=== PATIENT | male | born 1955 | race Caucasian/White ===

== ENCOUNTER 2022-10-01 12:41 | Outpatient (OUT) | payer MEDICARE, OTHER, SELFPAY ==
--- NOTE | 2022-10-01 13:00 | CA_ITS ---
Patient: MARGARET BARKLEY Exam Date: 10/01/2022 : 1955 Gender:M Ordering : DR EVERARDO JAIN M.D. Admission #: [id number] Family : Order #: [id number] CLICK HERE TO VIEW EXAM ECHOCARDIOGRAM REPORT PROCEDURE: CA ECHO DOPPLER COMPLETE INDICATIONS: Aortic valve disorder, abnormal ECG, hypertension, PTCA COMPARISON: None. DESCRIPTION: COMPLETE ECHOCARDIOGRAM Real-time transthoracic echocardiography with 2D, M-mode, spectral and color flow Doppler performed. QUALITY: Technical quality was good. LEFT VENTRICLE: Normal chamber size. Proximal septal hypertrophy (sigmoid septum). LV EF: Normal left ventricular ejection fraction, (>55%). DIASTOLIC: Normal diastolic function. ATRIAL SEPTUM: Visually appears intact. LEFT ATRIUM: Normal chamber size. RIGHT ATRIUM: Normal chamber size. RIGHT VENTRICLE: Normal chamber size. Normal right ventricular systolic function. TRICUSPID VALVE: Normal mobility and thickness. No stenosis with no regurgitation. MITRAL VALVE: Normal mobility and thickness. No evidence of mitral valve stenosis. There is no mitral annular calcification. No mitral regurgitation. AORTIC VALVE: Normal trileaflet appearance. No visible sclerosis. Normal leaflet mobility. No evidence of aortic valve stenosis. Mild aortic regurgitation. AORTIC ROOT: Normal diameter and appearance. PULMONIC VALVE: Normal thickness and mobility. No stenosis. Trivial regurgitation. PERICARDIUM: No evidence of pericardial effusion. IVC: Collapses with inspirations. CONCLUSION: Global left ventricular systolic function is normal; visually estimated ejection fraction is 55 to 60%. Normal diastolic function. The right ventricle is normal in size and systolic function. Mild aortic valve regurgitation Adult Echocardiography Procedure Report Left Ventricle LVEDD (3.7 - 5.6 cm): 4.94 cm LVESD (2.2 - 4.0 cm): 3.23 cm LVIVS thickness (0.6 - 1.2 cm): 1.20 cm LVPW thickness (0.5 - 1.0 cm): 1.09 cm LVOT Max Gradient: 5 mm[Hg] Peak Velocity (LVOT): 109.00 cm/s Mean Velocity (LVOT): 66.40 cm/s LVOT Diameter 2.50 cm Left Ventricular Ejection Fraction: 63.60 % Left Atrium LA Volume Index (2D A2C): 12823 mm3 Left Atrium Systolic Dimension: 4.40 cm Mitral Valve MV E to A Ratio: 1.30 Mitral Valve A-Wave Peak Velocity: 65.60 cm/s Mitral Valve E-Wave Peak Velocity: 84.40 cm/s Right Ventricle Aorta AO Root Diam: 3.20 cm Aortic Valve AoV Area (Peak Kvng): 3.57 cm2 AoV Area (VTI): 3.62 cm2 Peak Velocity(Antegrade Flow): 150.00 cm/s Peak Gradient(Antegrade Flow): 9 mm[Hg] Mean Velocity(Antegrade Flow): 89.70 cm/s Mean Gradient(Antegrade Flow): 4 mm[Hg] Velocity Time Integral: 31.20 cm Tricuspid Valve Peak Velocity: 39.40 cm/s Pulmonic Valve Peak Velocity: 69.80 cm/s, 72.70 cm/s Peak Gradient: 2 mm[Hg] Right Atrium Dictated by: Everardo Jain M.D. on 10/02/2022 at 16:44 Approved by: Everardo Jain M.D. on 10/02/2022 at 16:51
== END 2022-10-01 12:42 ==
LOC: CARD 12:45
PROVIDERS: PCP Family Medicine; Visit Provider Internal Medicine Interventional Cardiology
DX: I35.9 Nonrheumatic aortic valve disorder, unspecified (principal); R94.31 Abnormal electrocardiogram [ECG] [EKG]; I35.1 Nonrheumatic aortic (valve) insufficiency
CPT/HCPCS: 93306